=== PATIENT | male | born 1975 | race Caucasian/White ===

== ENCOUNTER → 2019-07-01 09:47 | Outpatient (CLI) | payer OTHER, SELFPAY ==
--- NOTE | 2019-07-01 | DI.MRI.S_ITS ---
PROCEDURE: MR KNEE LT WO CON INDICATIONS: Left knee pian TECHNIQUE: Noncontrast sagittal PD fast spin echo and T2 fast spin echo with fat saturation, sagittal 3-D FLASH with fat saturation; coronal T1 spin echo and PD fast spin echo with fat saturation, and axial PD fast spin echo with fat saturation through the knee. COMPARISON: [facility], MR, MR KNEE LT WO CON, 12/22/2017, 15:03. FINDINGS: Image quality: Excellent. Menisci: There is horizontal tear involving the posterior horn of the knee meniscus. A small radial tear may be present in the body of the medial meniscus. There is tear of the anterior root of the lateral meniscus with a 6 mm parameniscal cyst. Cruciate ligaments: Anterior cruciate ligament appears irregular with heterogeneous signal consistent with old partial tear/scarring. The posterior cruciate ligaments appear intact. Medial structures: The medial collateral ligament appears intact. The semimembranosus tendon insertions and meniscocapsular junction appear intact. Visualized portions of the pes anserinus tendons appear normal. No abnormal bursal fluid. Lateral structures: The lateral collateral ligament and the biceps femoris tendon appear intact. The popliteus tendon appears normal. Iliotibial band appears normal. Anterior structures: The quadriceps and patellar tendons appear intact. Patellar alignment is normal. No femoral trochlear dysplasia or ventral trochlear prominence. No edema in the infrapatellar fat pad. Bones and cartilage: No bone marrow contusions or fractures. There is tricompartmental cartilage fibrillation with heterogeneous cartilage signal. There is no full-thickness cartilage fissures. Joint space: There is [id number] knee joint effusion. No Champagne's cyst. Normal appearing synovial plicae are incidentally noted. IMPRESSION: 1. Horizontal tear of the posterior horn and probable small radial tear involving the body of the medial meniscus. 2. Tear of the anterior root of the lateral meniscus. 3. Old partial tear/scarring of the anterior cruciate ligament. 4. Tricompartmental cartilage fibrillation consistent with early cartilage degeneration. No full-thickness cartilage fissures. 5. [id number] knee joint effusion. Dictated by: Rock Cohen M.D. on 07/01/2019 at 11:09 Approved by: Rock Cohen M.D. on 07/01/2019 at 11:29
== END ==
PROVIDERS: Family Provider Family Medicine; PCP Family Medicine; Visit Provider Orthopaedic Surgery
DX: M25.562 Pain in left knee (principal); S83.282A Other tear of lateral meniscus, current injury, left knee, initial encounter; S83.242A Other tear of medial meniscus, current injury, left knee, initial encounter; M25.462 Effusion, left knee
CPT/HCPCS: 73721

== ENCOUNTER → 2021-04-20 13:15 | Outpatient (CLI) | payer OTHER, SELFPAY ==
--- NOTE | 2021-04-20 | DI.MRI.S_ITS ---
PROCEDURE: MR KNEE LT WO CON INDICATIONS: Unspecified internal derangement of left knee TECHNIQUE: Noncontrast sagittal PD fast spin echo and T2 fast spin echo with fat saturation, sagittal 3-D FLASH with fat saturation; coronal T1 spin echo and PD fast spin echo with fat saturation, and axial PD fast spin echo with fat saturation through the knee. COMPARISON: [facility], MR, MR KNEE LT WO CON, 07/01/2019, 10:31. FINDINGS: Menisci: Medial meniscus: Horizontally oriented medial meniscal tear involving the posterior horn and body with subtle abnormal signal extending to the undersurface of the posterior horn image 5/7. Lateral meniscus: Intact. Cruciate ligaments: Anterior cruciate ligament: Intact. Posterior cruciate ligament: Intact. Medial structures: The medial collateral ligament: Intact. Semimembranosus tendon: Intact. Visualized pes anserinus tendons: Intact although tenosynovitis involving the sartorius and gracilis noted near the insertion. Bursal fluid: none. Lateral structures: The lateral collateral ligament intact. Biceps femoris tendon appears intact. Popliteus tendon grossly unremarkable. Iliotibial band appears intact. Anterior structures: Quadriceps tendon: Intact. Medial patellofemoral ligament: Intact. Lateral patellofemoral ligament: Intact. Patellar tendon: Mild tendinopathy. Anterior soft tissues: Prepatellar and superficial infrapatellar subcutaneous edema/fluid. Deep infrapatellar region: Minimal fluid Bones and cartilage: Marrow: No focal marrow contusion or discrete low signal fracture line. Medial compartment: Intrasubstance signal changes and low-grade surface fraying of the femoral cartilage. The tibial cartilage appears grossly intact. Lateral compartment: No focal chondral defect. Patellofemoral compartment: Low-grade surface fraying of the patellar cartilage with underlying subchondral cystic change/early marrow edema. Femoral trochlear cartilage appears grossly intact although there is mild subchondral marrow edema Joint space: Effusion: Small joint effusion. Popliteal fossa: No Champagne's cyst. Loose bodies: None. IMPRESSION: Medial meniscal tear involving the posterior horn and body. Distal pes anserinus tenosynovitis. Mild joint degeneration as above Small joint effusion Dictated by: Feng Bolton M.D. on 04/20/2021 at 16:39 Approved by: Feng Bolton M.D. on 04/20/2021 at 16:45
== END ==
PROVIDERS: Family Provider Family Medicine; Referring Provider Orthopaedic Surgery; Visit Provider Orthopaedic Surgery
DX: M23.92 Unspecified internal derangement of left knee (principal); S83.242A Other tear of medial meniscus, current injury, left knee, initial encounter; M17.12 Unilateral primary osteoarthritis, left knee; M65.862 Other synovitis and tenosynovitis, left lower leg; M25.462 Effusion, left knee
CPT/HCPCS: 73721

== ENCOUNTER → 2021-11-01 13:20 | Outpatient (CLI) | payer OTHER, SELFPAY ==
[2021-11-01 17:28] LABS: COVID19 -Nasal RAPID Negative (Negative)
== END ==
PROVIDERS: Family Provider Family Medicine; Referring Provider Internal Medicine Gastroenterology; Visit Provider Nurse Practitioner Family
DX: Z20.822 Contact with and (suspected) exposure to COVID-19 (principal)
CPT/HCPCS: 87635; C9803

== ENCOUNTER 2021-11-03 11:50 | Day surgery (SDC) | payer OTHER, SELFPAY ==
--- NOTE | 2021-11-03 | PATH_ITS ---
[facility] Accession Number: [id number] . 01 Material submitted: . PART A: small bowel - SMALL BOWEL BIOPSY PART B: esophagus - ESOPHAGUS BIOPSIES PART C: colon - RANDOM COLON BIOPSIES . 02 Diagnosis: A. Small Bowel, Biopsy: Small bowel mucosa with no diagnostic abnormality. Negative for active inflammation, dysplasia, and malignancy. . B. Esophagus, Biopsies: Squamous mucosa with no diagnostic abnormality. Intraepithelial eosinophils are not increased. Negative for dysplasia and malignancy. . C. Random Colon, Biopsies: Colonic mucosa with no diagnostic abnormality. Negative for active, chronic, and microscopic colitis. Negative for dysplasia and malignancy. [facility] 11/08/2021 1110 Local . 02 Electronically signed: . Bina Pena MD, Pathologist NPI- [id number] . 01 Gross description: . Part A: SMALL BOWEL BIOPSY: Received in formalin are 3 fragment(s) of collins, soft tissue measuring 0.1 x 0.1 x 0.1 cm to 0.3 x 0.3 x 0.2 cm submitted entirely in 1 cassette(s) Part B: ESOPHAGUS BIOPSIES: Received in formalin are 3 fragment(s) of collins, soft tissue measuring 0.2 x 0.2 x 0.2 cm to 0.3 x 0.3 x 0.3 cm submitted entirely in 1 cassette(s) Part C: RANDOM COLON BIOPSIES: Received in formalin are 4 fragment(s) of collins, soft tissue measuring 0.1 x 0.1 x 0.1 cm to 0.4 x 0.2 x 0.2 cm submitted entirely in 1 cassette(s) /CHETAN 11/04/2021 2208 Local . 02 Pathologist provided ICD-10: R14.0, K29.00, R19.7 . 02 CPT . 746450, 679989, 914094 Specimen Comment: A courtesy copy of this report has been sent to [phone] Performed at: 01 [facility] [address] [id number] MD Samuel Valderrama MD Phone: [phone] Performed at: [id number] [place], [place] [id number] MD Carine Beaulieu MD Phone: [phone]
[2021-11-03 12:18] VITALS: BP 121/83; PULSE 82; RESP 14; TEMP 36.6; O2SAT 100; BMI 23.6
[2021-11-03] MEDS: SODIUM CHLORIDE 0.9% 1,000 ML 84 ML IV (12:27)
--- NOTE | 2021-11-03 13:17 | PM.HP.1 ---
History of Present Illness History of Present Illness Date Patient Seen: 11/03/21 Chief complaint: SDC Narrative: GE reflux, loose stools with celiac serologies positive, need for colorectal cancer screening. Patient History Medical History (Updated 11/02/21 @ 16:12 by Bhumika Hernandez, RN) Abdominal bloating Change in bowel habits Constipation Diarrhea GERD (gastroesophageal reflux disease) H. pylori infection Heartburn IBS (irritable bowel syndrome) Surgical History (Updated 11/02/21 @ 16:08 by Bhumika Hernandez RN) History of tonsillectomy Family & Social History Social History: household members none Tobacco & Substance use: Smoking Status Never smoker alcohol intake frequency a few times a week Substance Use Type does not use Meds Home Medications and Allergies Home Medications Medication Instructions Recorded Confirmed Type VSL#3 11/02/21 History dicyclomine 20 mg tablet 20 mg PO 11/02/21 History famotidine 20 mg tablet mg 11/02/21 History fluticasone propionate 50 1 spray INTRANASAL DAILY 11/02/21 11/02/21 History mcg/actuation nasal spray,suspension (Flonase Allergy Relief) loratadine 10 mg tablet mg 11/02/21 History psyllium husk PO DAILY 11/02/21 History simethicone 125 mg tablet mg 11/02/21 History Allergies Allergy/AdvReac Type Severity Reaction Status Date / Time levofloxacin [From Levaquin] Allergy Severe Unlisted Verified 11/02/21 16:11 Exam Vital Signs (past 8 hours): - 11/03/21 12:18 Temperature 98 F Pulse Rate 82 Respiratory Rate 14 Blood Pressure 121/83 Pulse Oximetry 100 Oxygen Delivery Method Room Air Narrative Exam Narrative: Oropharynx free of lesions Chest clear to auscultation percussion Cardiac exam reveals no S3 or murmur Assessment & Plan Assessment & Plan narrative: GE reflux and vaguely positive celiac serologies in the face of loose stools. Need for small-bowel biopsy and to check for esophagitis. The same time colonoscopy performed for screening. Time Spent With Patient Critical Care time: I spent a total of [] minutes of critical care time on this patient's care today; this time is exclusive of procedural time.
--- NOTE | 2021-11-03 13:19 | P.OP.EGD&C_ITS ---
Operative Date/Time/Diagnoses Date of procedure: 11/03/21 Pre-op diagnosis: See indication and findings Procedure & Clinicians Study performed: EGD and colonoscopy Indications: GE reflux and vaguely positive was celiac serologies need for small-bowel biopsy and evaluation esophagus. Also need for colorectal cancer screening. Surgeon: August Thomson Procedure Notes Procedure in detail: After informed consent was obtained the patient was placed in left lateral decubitus position. The upper endoscope was passed into the oropharynx and under direct visualization the esophagus stomach and duodenum were carefully examined. On withdrawal retroflexed view the GE junction was performed. The scope was removed. The patient tolerated procedure well. Patient was then turned and the video colonoscope was substituted and introduced the rectum slowly advanced cecum. Preparation was good. On slow withdrawal muc stan was carefully examined. The scope was removed. The patient tolerated procedure well. Blood loss none Complications none Sedation mac Findings EGD 1. Somewhat ringed esophagus possibly consistent with eosinophilic esophagitis. Random biopsies taken. 2. Completely normal squamocolumnar junction 3. Normal stomach 4. Normal duodenal bulb and sweep biopsies taken to rule out celiac Colonoscopy 1. Scattered sigmoid diverticulosis 2. Otherwise negative colonoscopy to cecum. Random biopsies taken. Will follow up with biopsies for Still LINX and he can follow up with myself or Dr. Li in the future.
[2021-11-03 13:48] VITALS: BP 96/69; PULSE 70; RESP 15; TEMP 36.2; O2SAT 95
[2021-11-03 13:53] VITALS: BP 108/78; PULSE 72; RESP 18; O2SAT 97
[2021-11-03 13:58] VITALS: BP 107/77; PULSE 72; RESP 16; O2SAT 96
[2021-11-03 14:03] VITALS: BP 95/70; PULSE 64; RESP 15; O2SAT 97
[2021-11-03 14:09] VITALS: BP 95/68; PULSE 67; RESP 14; O2SAT 98
== END 2021-11-03 14:39 | disposition home or self-care (01) ==
PROVIDERS: Family Provider Family Medicine; PCP Internal Medicine; Referring Provider Internal Medicine Gastroenterology; Visit Provider Internal Medicine Gastroenterology
PROC: 0DJ08ZZ Inspection of Upper Intestinal Tract, Via Natural or Artificial Opening Endoscopic (ICD-10-PCS; CPT 43235; principal; 2021-11-03 13:00)
PROC: 0DJD8ZZ Inspection of Lower Intestinal Tract, Via Natural or Artificial Opening Endoscopic (ICD-10-PCS; CPT 45378; 2021-11-03 13:00)
DX: R14.0 Abdominal distension (gaseous) (principal); K59.00 Constipation, unspecified; R19.7 Diarrhea, unspecified; K21.00 Gastro-esophageal reflux disease with esophagitis, without bleeding; K57.30 Diverticulosis of large intestine without perforation or abscess without bleeding
CPT/HCPCS: 45380; 43239; J2704

== ENCOUNTER → 2022-11-03 08:48 | Outpatient (CLI) | payer OTHER, SELFPAY ==
--- NOTE | 2022-11-03 | DI.CT.S_ITS ---
PROCEDURE: CT ABDOMEN PELVIS W CON INDICATIONS: UNSPECIFIED ABDOMINAL PAIN TECHNIQUE: After the administration of oral and IV contrast, axial sections were acquired from the lung bases to the pubic symphysis. Coronal and sagittal reformats were performed. For radiation dose reduction, the following was used: automated exposure control, adjustment of mA and/or kV according to patient size. COMPARISON: None. FINDINGS: Image quality: Excellent. Lung bases: No pleural effusion. Heart: No significant findings. ABDOMEN: Liver: Multiple small hepatic cysts. Gallbladder: Not distended. Biliary ducts: Unremarkable. Pancreas: No peripancreatic fluid collection. Spleen: No splenomegaly. Adrenal Glands: No nodule. Kidneys and Ureters: No hydronephrosis. Simple cyst at the inferior left kidney measuring at 3.6 cm. Stomach and Bowel: Stomach is not distended. No small bowel obstruction. Diverticulosis. Trace stranding adjacent to the colon in the left lower quadrant. The appendix is probably visualized and is not dilated. Peritoneum: No abnormal intraperitoneal fluid. No free air. Ventral Wall: No hernia. Abdominal Nodes: No retroperitoneal or mesenteric adenopathy by size criteria. Vessels: Aorta and inferior vena cava are normal in size. PELVIS: Pelvic Organs: Unremarkable. Bladder: No stone. Pelvic Nodes: No enlarged lymph nodes. Miscellaneous: Fat containing left inguinal hernia. Bones: No suspicious lesion. IMPRESSION: Mild thickening and stranding adjacent to the colon in the left lower quadrant. Suspect mild diverticulitis. No abscess. Recommend follow-up colonoscopy if not recently performed. Dictated by: Rod Villalta M.D. on 11/03/2022 at 11:31 Approved by: Rod Villalta M.D. on 11/03/2022 at 11:52
== END ==
PROVIDERS: Family Provider Family Medicine; PCP Internal Medicine; Referring Provider Internal Medicine; Visit Provider Internal Medicine
DX: R10.9 Unspecified abdominal pain (principal); R93.5 Abnormal findings on diagnostic imaging of other abdominal regions, including retroperitoneum
CPT/HCPCS: 74177; Q9967

== ENCOUNTER → 2023-08-24 09:01 | Outpatient (CLI) | payer OTHER, SELFPAY ==
--- NOTE | 2023-08-24 | DI.US.S_ITS ---
PROCEDURE: US SCROTUM INDICATIONS: Scrotal pain TECHNIQUE: Real-time scanning was performed of the scrotum and testicles, with image documentation. Color and pulse Doppler interrogation was performed of both testicles. COMPARISON: None. FINDINGS: Right: Testicle is normal in size at 5.8 x 2.8 x 2.5 cm, and homogenous in echotexture. Epididymis is normal in overall size and morphology. There is a 6 mm simple right epididymal head cyst. No hydrocele or varicoceles. Overlying scrotal skin is normal in thickness. Left: Testicle is normal in size at 4.7 x 3.7 x 2.3 cm, and homogeneous in echotexture. A 5 mm macro calcification is noted at the edge of the left testicle. Epididymis is normal in overall size and morphology. No hydrocele or varicoceles. Overlying scrotal skin is normal in thickness. Doppler: Color and pulse Doppler demonstrate normal and symmetric arterial flow in both testicles. IMPRESSION: Unremarkable testicular ultrasound. Dictated by: Lexi Reyes M.D. on 08/24/2023 at 10:51 Approved by: Lexi Reyes M.D. on 08/24/2023 at 10:52
== END ==
LOC: US 09:02
PROVIDERS: Family Provider Family Medicine; PCP Internal Medicine; Referring Provider Physician Assistant Medical; Visit Provider Physician Assistant Medical
DX: N50.82 Scrotal pain (principal)
CPT/HCPCS: 76870; 93975

== ENCOUNTER → 2024-06-05 12:24 | Outpatient (CLI) | payer OTHER, SELFPAY ==
--- NOTE | 2024-06-05 13:00 | DI.MRI.S_ITS ---
PROCEDURE: MR KNEE LT WO CON INDICATIONS: LEFT KNEE PAIN TECHNIQUE: Noncontrast sagittal PD fast spin echo and T2 fast spin echo with fat saturation, sagittal 3-D FLASH with fat saturation; coronal T1 spin echo and PD fast spin echo with fat saturation, and axial PD fast spin echo with fat saturation through the knee. COMPARISON: [facility], MR, MR KNEE LT WO CON, 04/20/2021, 13:27. FINDINGS: Image quality: Excellent. Menisci: In the medial meniscus, there is horizontal longitudinal tear of the posterior horn, extending into the meniscus body. Mild extrusion of the medial meniscus body. There is a parameniscal cyst about the posterior horn, measuring up to 1.7 cm. The lateral meniscus is intact. There is small parameniscal cyst about the anterior root of the lateral meniscus, measuring up to 5 mm. In addition, there is T2 intermediate, T1 hypointense round lesion measuring 9 mm in the anterior intercondylar notch, concerning for scarring/fibrosis (08:20), grossly unchanged from prior exam. Cruciate ligaments: The anterior and posterior cruciate ligaments appear intact. Medial structures: The medial collateral ligament appears intact. Lateral structures: The lateral collateral ligament, long and short heads of the biceps femoris tendon appear intact. The popliteus tendon appears normal; the popliteofibular ligament appears intact. The posterosuperior and anteroinferior popliteomeniscal fascicles appear intact. The arcuate and fabellofibular ligaments appear intact, on either side of the lateral inferior geniculate artery. Iliotibial band appears normal. Anterior structures: The quadriceps and the patellar tendon are intact. Superolateral Hoffa's fat pad edema, raising concern for patellar maltracking. Lateral tilt of the patella. The patellofemoral ligaments are intact. Bones and cartilage: There are multifocal mild chondral irregularity of the patella, with mild subchondral marrow edema in the median ridge. There is mild subchondral irregularity in the lateral trochlea, with slightly progressed mild subchondral cystic changes and marrow edema. In the medial compartment, there is mild chondral irregularity in the weight-bearing portion of the medial femoral condyle. In the lateral compartment, the cartilage is well maintained. No acute fracture. Joint space: Small knee effusion. No popliteal cyst. Mild tenosynovitis of the pes anserinus tendon. IMPRESSION: 1. Tear of the medial meniscus with parameniscal cyst, unchanged from prior exam. 2. Parameniscal cyst about the anterior root of the lateral meniscus with subjacent 9 mm fibrosis/scarring in the anterior intercondylar notch, unchanged from prior exam. 3. Findings suggestive of patellar maltracking. 4. Mild chondrosis of the patellofemoral compartment, minimally progressed. 5. Mild chondrosis of the medial compartment. 6. Mild tenosynovitis of the pes anserinus tendons, unchanged. Dictated by: Gabriela Valle M.D. on 06/05/2024 at 14:36 Approved by: Gabriela Valle M.D. on 06/05/2024 at 14:52
== END ==
PROVIDERS: Family Provider Family Medicine; PCP Internal Medicine; Referring Provider Internal Medicine; Visit Provider Internal Medicine
DX: S83.242A Other tear of medial meniscus, current injury, left knee, initial encounter (principal); M23.042 Cystic meniscus, anterior horn of lateral meniscus, left knee; M25.562 Pain in left knee; M22.42 Chondromalacia patellae, left knee; M65.98 Unspecified synovitis and tenosynovitis, other site
CPT/HCPCS: 73721

== ENCOUNTER → 2024-10-25 10:35 | Outpatient (CLI) | payer OTHER, SELFPAY ==
--- NOTE | 2024-10-25 10:36 | DI.MRI.S_ITS ---
PROCEDURE: MR PELVIC PROSTATE PROTOCOL INDICATIONS: elevated PSAs TECHNIQUE: Coronal HASTE, axial T1 FSE with fat saturation, 3-plane nonbreath-hold T2 FSE. After the administration of contrast, dynamic axial, delayed axial and coronal VIBE or 2-D FLASH with fat saturation through the pelvis. Diffusion weighted imaging and ADC was performed. COMPARISON: None. FINDINGS: Image quality: Diffusion weighted and dynamic contrast enhanced images are diagnostic. Prostate: Gland size is 4.6 x 3.1 x 3.7 cm; ellipsoid gland volume is 27.4 mL. PSA was not provided. Transitional zone heterogenous nodules are present, either well encapsulated or mostly encapsulated, compatible with PI-RADS 1 or 2 likely BPH nodules. Mildly T2 hypointense heterogenous striated appearance of the peripheral zone is commonly seen with current or prior prostatitis, PI-RADS 2. More focal abnormality seen in the left base peripheral zone measuring 6 x 6mm. DWI 3, T2 3, DCE neg. PI-RADS 3. No JORDAN. No SVI. Genitourinary system: Bladder wall thickness is normal. Distal ureters are non distended. Bowel and peritoneum: No bowel obstruction in the lower abdomen. Colonic diverticula. No pathologic ascites Nodes and vessels: No aneurysmal vessel or pathologic lymph nodes by size criteria seen. Soft tissues: Small fat containing left inguinal hernia Bones: No aggressive appearing osseous abnormality. IMPRESSION: Suspect sequelae of prostatitis and small BPH nodules are seen throughout the prostate. Overall assessment is PI-RADS 3. More focal area of abnormality seen in the left base, differential includes a more focal prostatitis sequelae (24/9, 4/12, 5/17). No 4 or 5 lesion to indicate clinically significant prostate cancer. No pelvic lymphadenopathy by size criteria. No aggressive osseous abnormality. Dictated by: Hilario Clay M.D. on 10/25/2024 at 12:53 Approved by: Hilario Clay M.D. on 10/25/2024 at 13:07
== END ==
PROVIDERS: Family Provider Family Medicine; PCP Internal Medicine; Referring Provider Physician Assistant Medical; Visit Provider Physician Assistant Medical
DX: R97.0 Elevated carcinoembryonic antigen [CEA] (principal); N41.1 Chronic prostatitis; G89.4 Chronic pain syndrome
CPT/HCPCS: 72197; A9579